=== PATIENT | male | born 1955 | race Two or more races ===

== ENCOUNTER 2018-09-28 15:20 | Outpatient (CLI) | payer OTHER ==
[~2018-09-28 15:20] MED LIST: PEPCID40 MG PO; ZOFRAN4 MG PO
== END 2018-09-28 15:32 | disposition home or self-care (01) ==
LOC: NUCLEAR 15:20
DX: I73.9 Peripheral vascular disease, unspecified (principal); E11.40 Type 2 diabetes mellitus with diabetic neuropathy, unspecified; M21.371 Foot drop, right foot; M21.372 Foot drop, left foot; R26.2 Difficulty in walking, not elsewhere classified

== ENCOUNTER → 2019-04-09 | Emergency (ER) | payer OTHER ==
[~2019-04-09] VITALS: Ht 172.7 cm; Wt 77.1 kg
[~2019-04-09] MED LIST changes: +AMLODIPINE BESY10 MG; +ATORVASTATIN CA20 MG; +B COMPLEX WITH1 EACH; +BACTRIM DS TAB1 EACH; +GLIPIZIDE ER10 MG; +HYDROCHLOROTHIA25 MG; +INDAPAMIDE2.5 MG; +LISINOPRIL40 MG; +PREDNISOLONE AC
== END | disposition expired ==
LOC: ER 07:51
DX: I46.9 Cardiac arrest, cause unspecified (principal); I10 Essential (primary) hypertension; E11.69 Type 2 diabetes mellitus with other specified complication; N39.0 Urinary tract infection, site not specified; B95.7 Other staphylococcus as the cause of diseases classified elsewhere